=== PATIENT | male | born 1975 | race Asian ===

== ENCOUNTER 2019-03-26 13:57 | Emergency (ER) | payer OTHER ==
[~2019-03-26] VITALS: Ht 182.9 cm; Wt 160.6 kg
[2019-03-26 14:13] VITALS: TEMP 99
[2019-03-26 14:56] LABS: PLATELET COUNT 292 K/uL (142-355); POTASSIUM 3.8 mmol/L (3.6-5.2)
[2019-03-26 16:45] VITALS: BP 142/70
== END 2019-03-26 16:46 | disposition home or self-care (01) ==
LOC: ED 13:57
PROVIDERS: Family Medicine
DX: M10.9 Gout, unspecified (principal)
CPT/HCPCS: 80053; 81000; 84550; 85027; 96372; 99283; J1885

== ENCOUNTER 2021-10-21 18:50 | Emergency (ER) | payer BC ==
[~2021-10-21] VITALS: Ht 182.9 cm; Wt 180.5 kg
[2021-10-21 20:27] LABS: PLATELET COUNT 266 K/uL (142-355)
[2021-10-21 20:35] LABS: POTASSIUM 4.1 mmol/L (3.6-5.2)
[2021-10-22 02:46] VITALS: BP 162/104; TEMP 98.3
== END 2021-10-22 02:46 | disposition home or self-care (01) ==
LOC: ED 18:50
PROVIDERS: Family Medicine
DX: M10.9 Gout, unspecified (principal); G47.39 Other sleep apnea; I16.1 Hypertensive emergency
CPT/HCPCS: 36415; 80053; 80307; 81002; 83880; 84550; 85027; 86140; 96374; 96375; 96376; 99284; J0360; J1885; J1940; J2930; J3490

== ENCOUNTER 2021-12-14 09:55 | Outpatient (CLI) | payer BC | END 2021-12-14 20:31 | disposition home or self-care (01) | LOC: LABW 09:55 → RESP 09:55 → RAD 09:55 → LABW 20:31 | PROVIDERS: ATTEND Nurse Practitioner Primary Care | DX: R07.89 Other chest pain (principal) | CPT/HCPCS: 93005 ==